=== PATIENT | male | born 1985 | race Caucasian/White ===

== ENCOUNTER 2019-04-24 06:17 | Day surgery (SDC) | payer BC ==
--- OUTSIDE RECORDS SUMMARY | 2019-04-24 06:19 | XMS REPORT | Summary of Care ---
:1985 Author Organization [facility] Address [address] [place] [address] Care Team Providers Name Role Phone Kev Velazquez MD Primary Care Provider Reason for Visit Reason Comments Follow-up anxiety follow up Encounter Details Date Type Department Care Team Description 09/20/2018 Office Visit [facility] Kev Velazquez Anxiety (Primary Dx); Medicine - Kristen Marshall MD Cold sore; [facility] [place] [address] Gastroesophageal reflux disease [place] [phone] Allergies No Known Allergiesdocumented as of this encounter (statuses as of 09/20/2018) Medications Medication Sig Dispensed Refills Start Date End Date Status clonazePAM 0.25 mg Take 0.25 mg 0 Active disintegrating tablet by mouth 2 (two) times daily as needed for Anxiety. escitalopram oxalate Take 1 90 tablet 4 09/20/2018 Active (LEXAPRO) 10 mg tablet by tabletIndications: mouth daily. Anxiety hydrOXYzine 25 mg Take 1 30 tablet 4 09/20/2018 Active tabletIndications: tablet by Anxiety mouth every 6 (six) hours as needed for Itching or Anxiety. pantoprazole 40 mg EC TAKE 1 90 tablet 4 09/20/2018 Active tabletIndications: TABLET BY Gastroesophageal MOUTH EVERY reflux disease without DAY IN THE esophagitis MORNING valACYclovir 500 mg Take 1 90 tablet 4 09/20/2018 Active tabletIndications: tablet by Cold sore mouth daily. SERTraline 100 mg Take 2 180 tablet 4 07/11/2018 Discontinued tabletIndications: tablets by 9 Anxiety mouth daily. pantoprazole 40 mg EC TAKE 1 90 tablet 4 07/11/2018 Discontinued tabletIndications: TABLET BY 9 Gastroesophageal MOUTH EVERY reflux disease without DAY IN THE esophagitis MORNING escitalopram oxalate Take 10 mg 0 Discontinued (LEXAPRO) 10 mg tablet by mouth 9 daily. hydrOXYzine 25 mg Take 25 mg 0 Discontinued tablet by mouth 9 every 6 (six) hours as needed for Itching or Anxiety. documented as of this encounter (statuses as of 09/20/2018) Active Problems Problem Noted Date Sleep apnea, obstructive 09/13/2015 Morbid obesity with body mass index of 70 and over in adult 09/13/2015 Gastroesophageal reflux disease without esophagitis 09/13/2015 documented as of this encounter (statuses as of 09/20/2018) Immunizations Name Administration Dates Next Due Influenza Virus Vaccine Quad IM Multi-dose 6+ MO 12/25/2016 documented as of this encounter Social History Tobacco Use Types Packs/Day Years Used Date Never Smoker Smokeless Tobacco: Never Used Alcohol Use Drinks/Week oz/Week Comments Yes 1 Cans of beer 0.6 rarely 0 Standard drinks or equivalent Sex Assigned at Date Recorded Not on file Job Start Date Occupation Industry Not on file Not on file Not on file Travel History Travel Start Travel End No recent travel history available. documented as of this encounter Last Filed Vital Signs Vital Sign Reading Time Taken Comments Blood Pressure 104/64 09/20/2018 10:42 AM CDT Pulse 56 09/20/2018 10:42 AM CDT Temperature 36.2 C (97.2 F) 09/20/2018 10:42 AM CDT Respiratory Rate 16 09/20/2018 10:42 AM CDT Oxygen Saturation - - Inhaled Oxygen Concentration - - Weight 155.6 kg (343 lb) 09/20/2018 10:42 AM CDT Height 170.2 cm (5' 7") 09/20/2018 10:42 AM CDT Body Mass Index 53.72 09/20/2018 10:42 AM CDT documented in this encounter Progress Notes Kev Velazquez MD - 09/20/2018 10:15 AM CDT CC: follow up anxiety and depression Jorge L is a 32 year old male Depression This is a chronic problem. Progression since onset: controlled on current medications. patient wants to get his medications here with 3 month supply for insurance. No Known Allergies Current Outpatient Medications Medication Sig Dispense Refill clonazePAM 0.25 mg disintegrating tablet Take 0.25 mg by mouth 2 (two) times daily as needed forAnxiety. escitalopram oxalate (LEXAPRO) 10 mg tablet Take 10 mg by mouth daily. hydrOXYzine 25 mg tablet Take 25 mg by mouth every 6 (six) hours as needed for Itching or Anxiety. pantoprazole 40 mg EC tablet TAKE 1 TABLET BY MOUTH EVERY DAY IN THE MORNING 90 tablet 4 No current facility-administered medications for this visit. Past Medical History: Diagnosis Date Anxiety Depression Esophageal reflux Morbid obesity with body mass index of 70 and over in adult Sleep apnea, obstructive Past Surgical History: Procedure Laterality Date ADENOIDECTOMY TONSILLECTOMY Social History Socioeconomic History Marital status: Spouse name: Not on file Number of children: Not on file Years of education: Not on file Highest education level: Not on file Occupational History Not on file Social Needs Financial resource strain: Not on file Food insecurity: Worry: Not on file Inability: Not on file Transportation needs: Medical: Not on file Non-medical: Not on file Tobacco Use Smoking status: Never Smoker Smokeless tobacco: Never Used Substance and Sexual Activity Alcohol use: Yes Alcohol/week: 0.6 oz Types: 1 Cans of beer per week Comment: rarely Drug use: No Sexual activity: Yes Partners: Female Lifestyle Physical activity: Days per week: Not on file Minutes per session: Not on file Stress: Not on file Relationships Social connections: Talks on phone: Not on file Gets together: Not on file Attends jainism service: Not on file Active member of club or organization: Not on file Attends meetings of clubs or organizations: Not on file Relationship status: Not on file Intimate partner violence: Fear of current or ex partner: Not on file Emotionally abused: Not on file Physically abused: Not on file Forced sexual activity: Not on file Other Topics Concern Not on file 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 Family History Problem Relation Age of Onset Diabetes Mother No Significant Medical Problems Father Review of Systems BP 104/64 (BP Location: Left arm, Patient Position: Sitting, BP CUFF SIZE: Adult Large) | Pulse 56| Temp 36.2 C (97.2 F) (Tympanic) | Resp 16 | Ht 5 ' 7" (1.702 m) | Wt 343 lb (155.6 kg) | BMI 53.72 kg/m Physical Exam Constitutional: He is oriented to person, place, and time. He appears well- developed and well-nourished. HENT: Head: Normocephalic and atraumatic. Eyes: Conjunctivae are normal. Neck: Normal range of motion. Neck supple. No JVD present. No tracheal deviation present. No thyromegaly present. Cardiovascular: Normal rate, regular rhythm, normal heart sounds and intact distal pulses. Exam reveals no gallop and no friction rub. No murmur heard. Pulmonary/Chest: Effort normal and breath sounds normal. No respiratory distress. He has no wheezes.He has no rales. He exhibits no tenderness. Abdominal: Soft. Bowel sounds are normal. He exhibits no distension and no mass. There is no tenderness. There is no rebound and no guarding. Musculoskeletal: Normal range of motion. He exhibits no edema or tenderness. Lymphadenopathy: He has no cervical adenopathy. Neurological: He is alert and oriented to person, place, and time. Skin: Skin is warm and dry. Diagnosis: 1. Anxiety escitalopram oxalate (LEXAPRO) 10 mg tablet hydrOXYzine 25 mg tablet 2. Cold sore valACYclovir 500 mg tablet 3. Gastroesophageal reflux disease without esophagitis pantoprazole 40 mg EC tablet Follow up: 6 months Patient Care Team: Kev Velazquez MD as PCP - General ([facility]) Plan of care, desired health behaviors, goals,& medication discussed with patient. Education resources & self management tools provided and reviewed with AVS. Patient/guardian/family verbalized understanding & agrees to plan of care. Barriers to care: None Ability to manage care: Good documented in this encounter Plan of Treatment Date Type Specialty Care Team Description 10/11/2018 Office Visit Family Medicine Kev Velazquez MD [address] [place] [address] [address] [place], [place] [phone] Health Maintenance Due Date Last Done Comments VARICELLA VACCINES (1 of 2 - 13+ 10/02/2000 2-dose series) DTaP,Tdap,and Td Vaccines (1 - 10/02/2006 Tdap) INFLUENZA VACCINE 10/27/2018 12/25/2016 PNEUMOCOCCAL 0-64 YEARS COMBINED Aged Out No longer eligible based on SERIES patient's age to complete this topic documented as of this encounter Results Not on filedocumented in this encounter Visit Diagnoses Diagnosis Anxiety - Primary Anxiety state, unspecified Cold sore Herpes simplex without mention of complication Gastroesophageal reflux disease without esophagitis Esophageal reflux documented in this encounter Insurance Payer Benefit Plan Subscriber ID Effective Dates Phone Address Type / Group [facility] [id number] 2015-Junior [phone] [address] PPO/POS [place] - OUT OF t 7 [id number] [place] [address] documented as of this encounter
--- OUTSIDE RECORDS SUMMARY | 2019-04-24 06:19 | XMS REPORT ---
:1985 [facility] [address] Stubbs [address] [place] [address] Care Team Providers Name Role Phone Unavailable Unavailable Unavailable Problems This patient has no known problems. Allergies, Adverse Reactions, Alerts This patient has no known allergies or adverse reactions. Medications This patient has no known medications.
--- OUTSIDE RECORDS SUMMARY | 2019-04-24 06:20 | XMS REPORT | Summary of Care ---
:1985 Author Organization [facility] Address [address] [place] [address] Care Team Providers Name Role Phone Kev Velazquez MD Primary Care Provider Reason for Visit Reason Comments Rx Concern/Question Encounter Details Date Type Department Care Team Description 10/07/2018 Telephone [facility] Family Kev Velazquez Rx Concern/Question Medicine - Kristen Marshall MD [address] [place] [address] [place] [address] [place], [place] [phone] Allergies No Known Allergiesdocumented as of this encounter (statuses as of 10/07/2018) Medications Medication Sig Dispensed Refills Start Date End Date Status clonazePAM 0.25 mg Take 0.25 mg by 0 Active disintegrating tablet mouth 2 (two) times daily as needed for Anxiety. escitalopram oxalate Take 1 tablet 90 tablet 4 09/20/2018 Active (LEXAPRO) 10 mg by mouth daily. tabletIndications: Anxiety hydrOXYzine 25 mg Take 1 tablet 30 tablet 4 09/20/2018 Active tabletIndications: by mouth every Anxiety 6 (six) hours as needed for Itching or Anxiety. pantoprazole 40 mg EC TAKE 1 TABLET 90 tablet 4 09/20/2018 Active tabletIndications: BY MOUTH EVERY Gastroesophageal reflux DAY IN THE disease without MORNING esophagitis valACYclovir 500 mg Take 1 tablet 90 tablet 4 09/20/2018 Active tabletIndications: Cold by mouth daily. sore documented as of this encounter (statuses as of 10/07/2018) Active Problems Problem Noted Date Sleep apnea, obstructive 09/13/2015 Morbid obesity with body mass index of 70 and over in adult 09/13/2015 Gastroesophageal reflux disease without esophagitis 09/13/2015 documented as of this encounter (statuses as of 10/07/2018) Immunizations Name Administration Dates Next Due Influenza [...] of this encounter Last Filed Vital Signs Not on filedocumented in this encounter Plan of Treatment Date Type Specialty Care Team Description 10/11/2018 Office Visit Family Medicine Kev Velazquez MD [address] [place] [address] [place] [address] [phone] 03/21/2019 Office Visit Family Medicine Kev Velazquez MD [address] [place] [address] [place] [address] [phone] Health Maintenance Due Date Last Done Comments VARICELLA VACCINES (1 of 2 - 13+ 10/02/2000 2-dose series) DTaP,Tdap,and Td Vaccines (1 - 10/02/2006 Tdap) INFLUENZA VACCINE 10/27/2018 12/25/2016 PNEUMOCOCCAL 0-64 YEARS COMBINED Aged Out No longer eligible based on SERIES patient's age to complete this topic documented as of this encounter Results Not on filedocumented in this encounter Insurance Payer Benefit Plan Subscriber ID Effective Dates Phone Address Type / Group [facility] [id number] 2015-Junior [phone] [address] PPO/POS [place] - OUT OF t 7 [id number] [place] [address] documented as of this encounter
--- OUTSIDE RECORDS SUMMARY | 2019-04-24 06:20 | XMS REPORT | Summary of Care ---
:1985 Author Organization [facility] Address [address] [place] [address] Care Team Providers Name Role Phone Kev Velazquez MD Primary Care Provider Encounter Details Date Type Department Care Team Description 10/30/2018 Letter (Out) [facility] Family Elisabeth Bruce PA [address] [place] [address] [place] [address] Allergies No Known Allergiesdocumented as of this encounter (statuses as of 10/30/2018) Medications Medication Sig Dispensed Refills Start Date [...] Active tabletIndications: Cold by mouth daily. sore brompheniramine-pseudoeph Take 5 mL by 120 mL 0 10/30/2018 Active edrine-DM (BROMFED DM) mouth 4 (four) 2-30-10 mg/5 mL times daily as syrupIndications: Acute needed for Cold URI symptoms. documented as of this encounter (statuses as of 10/30/2018) Active Problems Problem Noted Date Sleep apnea, obstructive 09/13/2015 Morbid obesity with body mass index of 70 and over in adult 09/13/2015 Gastroesophageal reflux disease without esophagitis 09/13/2015 documented as of this encounter (statuses as of 10/30/2018) Immunizations Name Administration Dates Next Due Influenza [...] Treatment Date Type Specialty Care Team Description 03/21/2019 Office Visit Family Medicine Kev Velazquez MD [address] [place] [address] [place] [phone] Health Maintenance Due Date Last Done Comments VARICELLA VACCINES (1 of 2 - 13+ 10/02/2000 2-dose series) DTaP,Tdap,and Td Vaccines (1 - 10/02/2006 Tdap) INFLUENZA VACCINE (#1) 2018 12/25/2016 PNEUMOCOCCAL 0-64 YEARS COMBINED Aged Out No longer eligible based on SERIES patient's age to complete this topic documented as of this encounter Results Not on filedocumented in this encounter Insurance Payer Benefit Plan Subscriber ID Effective Dates Phone Address Type / [facility] [id number] 2015-Junior [phone] [address] PPO/POS [place] - OUT OF t 7 [id number] [place] [address] documented as of this encounter
--- OUTSIDE RECORDS SUMMARY | 2019-04-24 06:20 | XMS REPORT | Summary of Care ---
:1985 Author Organization [facility] Address [address] [place] [address] Care Team Providers Name Role Phone Kev Velazquez MD Primary Care Provider Reason for Visit Reason Comments Sore Throat x1 day Cough Encounter Details Date Type Department Care Team Description 10/30/2018 Office Visit [facility] Family Elisabeth Bruce, Acute URI ( Primary Dx); Medicine - [place] HOM[place] JEANETH (obstructive sleep apnea) [facility] [address] [place] [address] [place] [phone] Allergies No Known Allergiesdocumented as of this [...] Sign Reading Time Taken Comments Blood Pressure 121/80 10/30/2018 11:15 AM CDT Pulse 64 10/30/2018 11:15 AM CDT Temperature 36.8 C (98.3 F) 10/30/2018 11:15 AM CDT Respiratory Rate - - Oxygen Saturation 98% 10/30/2018 11:15 AM CDT Inhaled Oxygen Concentration - - Weight 154.7 kg (341 lb) 10/30/2018 11:15 AM CDT Height - - Body Mass Index 53.41 09/20/2018 10:42 AM CDT documented in this encounter Patient Instructions Patient InstructionsElisabeth Bruce PA - 10/30/2018 11:00 AM CDT Brompheniramine; Dextromethorphan; Pseudoephedrine oral solution Brand Names: Brom/PSE/DM Cough, Bromaline DM, Bromatane DX, Brometane DX, Bromfed-DM, Bromophed DX, Brotapp-DM, BroveX PSB DM, Dimetane DX, LoHist PSB DM , Myphetane DX, Robitussin Cough and Allergy, Tuss Mine DM What is this medicine? BROMPHENIRAMINE; DEXTROMETHORPHAN; PSEUDOEPHEDRINE (brome fen IR a meen; dex troe meth OR fan; pita thornton e FED rin) is a histamine garcia, cough suppressant, and a decongestant. It can help relieve cough, runny nose, stuffy nose, sneezing , and itchy or watery eyes. This medicine is used to treat allergy and cold symptoms. This medicine will not treat an infection. How should I use this medicine? Take this medicine by mouth with a full glass of water. Follow the directions on the prescription label. Use a specially marked spoon or container to measure your medicine. Household spoons are not accurate. Take this medicine with food or milk if it upsets your stomach. Take your doses at regular times. Do not take more medicine than directed. Talk to your managed services sales consultant regarding the use of this medicine in children. While this drug may be prescribed for children as young as 2 years old for selected conditions, precautions do apply. Patients over 60 years old may have a stronger reaction to this medicine and need smaller doses. What side effects may I notice from receiving this medicine? Side effects that you should report to your doctor or health healthcare liaison as soon as possible: allergic reactions like skin rash, itching or hives, swelling of the face, lips, or tongue breathing problems changes in vision fast or irregular heartbeat feeling faint or lightheaded, falls hallucinations high blood pressure seizure trouble passing urine or change in the amount of urine vomiting Side effects that usually do not require medical attention (report to your doctor or health healthcare liaison if they continue or are bothersome): anxiety diarrhea headache loss of appetite nausea What may interact with this medicine? Do not take this medicine with any of the following medications: MAOIs like Carbex, Eldepryl, Marplan, Nardil, and Parnate This medicine may also interact with the following medications: any product that contains alcohol any stimulant drug barbiturates mecamylamine medicines for anxiety or sleep medicines for chest pain, heart disease, blood pressure or heart rhythm problems medicines for colds or allergies medicines for depression, anxiety, or psychotic disturbances reserpine some herbal or nutritional supplements some medicines for pain some medicines for Parkinson's disease What if I miss a dose? If you miss a dose, take it as soon as you can. If it is almost time for your next dose, take only that dose. Do not take double or extra doses. Where should I keep my medicine? Keep out of the reach of children. Store between 8 and 30 degrees C (46 and 86 degrees F). Protect from heat and light. Throw away any unused medicine after the expiration date. What should I tell my health care provider before I take this medicine? They need to know if you have any of these conditions: asthma blood vessel disease diabetes difficulty passing urine glaucoma high blood pressure other chronic disease stomach ulcer taken an MAOI like Carbex, Eldepryl, Marplan, Nardil, or Parnate in last 14 days thyroid disease an unusual or allergic reaction to brompheniramine, dextromethorphan, pseudoephedrine, other medicines, foods, dyes, or preservatives or trying to get breast-feeding What should I watch for while using this medicine? Tell your doctor or health healthcare liaison if your symptoms do not improve or if they get worse. If you have trouble falling asleep at night, take the last dose of the day at least a few hours beforebedtime. You may get drowsy or dizzy. Do not drive, use machinery, or do anything that needs mental alertnessuntil you know how this medicine affects you. To reduce the risk of dizzy or fainting spells, do notstand or sit up quickly, especially if you are an older patient. Alcohol may increase dizziness and drowsiness. Avoid alcoholic drinks. Your mouth may get dry. Chewing sugarless gum or sucking hard candy, and drinking plenty of water may help. Contact your doctor if the problem does not go away or is severe. This medicine may cause dry eyes and blurred vision. If you wear contact lenses you may feel some discomfort. Lubricating drops may help. See your eye doctor if the problem does not go away or is severe. NOTE:This sheet is a summary. It may not cover all possible information. If you have questions aboutthis medicine, talk to your doctor, pharmacist, or health care provider. Copyright 2018 Elsevier Adult Self-Care for Colds Colds are caused by viruses. They can't be cured with antibiotics. However, you can ease symptoms and support your body's efforts to heal itself. No matter which symptoms you have, be sure to: Drink plenty of fluids (water or clear soup) Stop smoking and drinking alcohol Get plenty of rest Understand a fever Take your temperature several times a day. If your fever is100.4F(38.0 C) for more than a day, call your healthcare provider. Relax, lie down. Go to bed if you want. Just get off your feet and rest. Also , drink plenty of fluids to avoid dehydration. Take acetaminophen or a nonsteroidal anti-inflammatory agent (NSAID), such as ibuprofen. Treat a troubled nose kindly Breathe steam or heated humidified air to open blocked nasal passages. shipping manager a hot shower or use a vaporizer. Be careful not to get burned by the steam. Saline nasal sprays and decongestant tablets help open a stuffy nose. Antihistamines can also help, but they can cause side effects such as drowsiness and drying of the eyes, nose, and mouth. Soothe a sore throat and cough Gargle [id number] with1/4teaspoon of salt dissolved in1/2 cup of warm water. Suck on throat lozenges and cough drops to moisten your throat. Cough medicines are available but it is unclear how well they actually work. Take acetaminophen or an NSAID, such as ibuprofen, to ease throat pain Ease digestive problems Put fluids back into your body. Take frequent sips of clear liquids such as water or broth. Avoiddrinks that have a lot of sugar in them, such as juices and sodas. These can make diarrhea worse. Older children and adults can drink sports drinks. As your appetite returns, you can resume your normal diet. Ask your healthcare provider if there are any foods you should avoid. When to seek medical care When you first notice symptoms, ask your healthcare provider if antiviral medicines are appropriate.Antibiotics should not be taken for colds or flu. Also, call your healthcare provider if you have any of the following symptoms or if you aren't feeling better after 7 days: Shortness of breath Pain or pressure in the chest or belly (abdomen) Worsening symptoms, especially after a period of improvement Fever of100.4F (38.0C) or higher, or fever that doesn't go down with medicine Sudden dizziness or confusion Severe or continued vomiting Signs of dehydration, including extreme thirst, dark urine, infrequent urination, dry mouth Spotted, red, or very sore throat Date Last Reviewed: 01/27/201619993599-5329 [employer]. [address] [place] [address], [place] [address]. All rights reserved. This information is not intended as a substitute for professional medical care. Always follow your healthcare professional's instructions. Bromfed- decongestant, antihistamine and cough suppressant. Do not add additional otc products with these components. mucinex- without decongestant; take with water--> plain guaifenesin Rest Wash hands frequently Increase water intake Cover mouth when coughing. Warm liquids Gargle with warm salt water/throat lozenges Tylenol as needed. Humidified steam Er: fever, chest pain, coughing up blood, shortness of breath, dizziness, passing out documented in this encounter Progress Notes Elisabeth Bruce PA - 10/30/2018 11:00 AM CDT Cc: Chief Complaint Patient presents with Sore Throat x1 day Cough Jorge Lcarlos Estrada is a 33 year old male. JEANETH: Dx 5-7 years ago with outside clinic 1-1.5 years ago he completed another sleep study with [facility] confirming JEANETH. He has been using a cpap every night and feels great while using. He needs a new mask. Dr. Velazquez has sent information to [facility] Patient but appears patient needs a face to face note so advised to follow-up. URI Presenting symptoms: congestion, cough, ear pain (Right) and sore throat Presenting symptoms: no facial pain, no fatigue, no fever and no rhinorrhea Duration: 1 day Timing: Intermittent Progression: Unchanged Chronicity: New Worsened by: Nothing Ineffective treatments: theraflu. Associated symptoms: sneezing Associated symptoms: no arthralgias, no headaches, no myalgias, no neck pain, no sinus pain, no swollen glands and no wheezing Risk factors: sick contacts (, coworker with cough) Risk factors: not elderly, no chronic cardiac disease, no chronic kidney disease , no chronic respiratory disease, no diabetes mellitus, no immunosuppression, no recent illness and no recent travel Allergies Jorge L has No Known Allergies. Medications Outpatient Medications Prior to Visit Medication Sig Dispense Refill clonazePAM 0.25 mg disintegrating tablet Take 0.25 mg by mouth 2 (two) times daily as needed forAnxiety. escitalopram oxalate (LEXAPRO) 10 mg tablet Take 1 tablet by mouth daily. 90 tablet 4 hydrOXYzine 25 mg tablet Take 1 tablet by mouth every 6 (six) hours as needed for Itching or Anxiety. 30 tablet 4 pantoprazole 40 mg EC tablet TAKE 1 TABLET BY MOUTH EVERY DAY IN THE MORNING 90 tablet 4 valACYclovir 500 mg tablet Take 1 tablet by mouth daily. 90 tablet 4 No facility-administered medications prior to visit. 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 Family History Problem Relation Age of Onset Diabetes Mother No Significant Medical Problems Father Review of Systems Constitutional: Negative for activity change, appetite change, chills, diaphoresis, fatigue and fever. HENT: Positive for congestion, ear pain (Right), sneezing and sore throat. Negative for drooling, ear discharge, facial swelling, hearing loss, mouth sores , nosebleeds, postnasal drip, rhinorrhea, sinus pressure, sinus pain, tinnitus, trouble swallowing and voice change. Eyes: Positive for discharge (watery) and itching. Negative for pain and redness. Respiratory: Positive for cough. Negative for apnea, choking, chest tightness, shortness of breath, wheezing and stridor. Cardiovascular: Negative for chest pain, palpitations and leg swelling. Gastrointestinal: Negative for abdominal pain, blood in stool, constipation, diarrhea and vomiting. Musculoskeletal: Negative for arthralgias, myalgias, neck pain and neck stiffness. Skin: Negative for rash. Neurological: Negative for dizziness, syncope, light-headedness and headaches. Vital Signs BP 121/80 | Pulse 64 | Temp 36.8 C (98.3 F) (Tympanic) | Wt 341 lb ( 154.7 kg) | SpO2 98% | BMI 53.41 kg/m Physical Exam Constitutional: He is oriented to person, place, and time. He appears well- developed and well-nourished. No distress. HENT: Head: Normocephalic and atraumatic. Right Ear: Tympanic membrane, external ear and ear canal normal. Left Ear: Tympanic membrane, external ear and ear canal normal. Nose: Mucosal edema present. No rhinorrhea. Right sinus exhibits no maxillary sinus tenderness and no frontal sinus tenderness. Left sinus exhibits no maxillary sinus tenderness and no frontal sinus tenderness. Mouth/Throat: Uvula is midline and mucous membranes are normal. Posterior oropharyngeal erythema present. No oropharyngeal exudate, posterior oropharyngeal edema or tonsillar abscesses. + clear pnd Eyes: Conjunctivae are normal. Neck: Neck supple. Cardiovascular: Normal rate, regular rhythm and normal heart sounds. Pulmonary/Chest: Effort normal and breath sounds normal. Abdominal: Soft. Bowel sounds are normal. He exhibits no distension. There is no tenderness. There is no guarding. Musculoskeletal: Normal range of motion. Lymphadenopathy: He has no cervical adenopathy. Neurological: He is alert and oriented to person, place, and time. Skin: Skin is warm and dry. He is not diaphoretic. Psychiatric: He has a normal mood and affect. His behavior is normal. Nursing note and vitals reviewed. Assessment/Plan Acute URI (primary encounter diagnosis) Plan: mocbcqzgiziukkg-vtvcocvjjvhjeii-CK (BROMFED DM) 2-30-10 mg/5 mL syrup, THROAT CULTURE, POCT RAPID STREP SCREEN FOR GROUP A Results for JORGE L ESTRADA ( ) as of 10/30/2018 12:05 Ref. Range 10/30/2018 00:00 POCT GP A STREP Latest Ref Range: Negative - Negative neg Negative POCT strep. Suspect viral etiology. Culture to confirm. Explained viral vs bacterial etiologies in detail. Explained that the most common cause of URI is viral. Viral cause most likely with s/s <7-10 days. Explained that antibiotics are not used for viral causes. Explained risks of antibiotic resistance and potential side effects with unnecessary use. Pt reports understanding. Treatment of choice is symptomatic, which includes: Bromfed- decongestant, antihistamine and cough suppressant. Do not add additional otc products with these components. mucinex- without decongestant; take with water--> plain guaifenesin Rest Wash hands frequently Increase water intake Cover mouth when coughing. Warm liquids Gargle with warm salt water/throat lozenges Tylenol as needed. Humidified steam Er: fever, chest pain, coughing up blood, shortness of breath, dizziness, passing out JEANETH (obstructive sleep apnea) Plan: Patient is using cpap every night. Feels great with use. Needs new mask. Order already placed, needing additional information. Will request sleep study results from [facility] to review and send to [facility] patient Pt ed/precautions given in detail regarding conditions/medicaitons. Er precautions given. Pt reportsunderstanding and agrees. rtc if s/s worsen or do not improve; Plan of care, desired health behaviors, goals, Ddx, & any prescribed or OTC medications discussed with patient. Education resources & self management tools provided and reviewed with AVS. Patient/guardian/family verbalized understanding & agrees to plan of care. Barriers to care: NONE Ability to manage care: Good This visit did not involve counseling and coordination that comprised more than 50% of the visit time.Electronically signed by Elisabeth Bruce PA at 2018 12:10 PM CDTdocumented in this encounter Plan of Treatment Date Type Specialty Care Team Description 03/21/2019 Office Visit Family Medicine Kev Velazquez MD [address] [place] [address] [place] [phone] Name Type Priority Associated Diagnoses Order Schedule THROAT CULTURE LAB Routine Acute URI Ordered: 10/30/2018 Health Maintenance Due Date Last Done Comments VARICELLA VACCINES (1 of 2 - 13+ 10/02/2000 2-dose series) DTaP,Tdap,and Td Vaccines (1 - 10/02/2006 Tdap) INFLUENZA VACCINE (#1) 2018 12/25/2016 PNEUMOCOCCAL 0-64 YEARS COMBINED Aged Out No longer eligible based on SERIES patient's age to complete this topic documented as of this encounter Procedures Procedure Name Priority Date/Time Associated Diagnosis Comments POCT RAPID STREP Routine 10/30/2018 Acute URI Results for this SCREEN FOR GROUP A procedure are in the results section. documented in this encounter Results POCT RAPID STREP SCREEN FOR GROUP A (10/30/2018) POCT GP A STREP neg Negative - Negative Specimen Swab - THROAT documented in this encounter Visit Diagnoses Diagnosis Acute URI - Primary Acute upper respiratory infections of unspecified site JEANETH (obstructive sleep apnea) Obstructive sleep apnea (adult) (pediatric) documented in this encounter Insurance Payer Benefit Plan Subscriber ID Effective Dates Phone Address Type / Group [facility] [id number] 2015-Junior [phone] [address] PPO/POS [place] - OUT OF t 7 [id number] [place] [address] [facility] [place] [facility] [place] (Home) [place] [address] documented as of this encounter"
--- OUTSIDE RECORDS SUMMARY | 2019-04-24 06:20 | XMS REPORT | Summary of Care ---
:1985 Author Organization [facility] Address [address] [place] [address] Care Team Providers Name Role Phone Kev Velazquez MD Primary Care Provider Reason for Visit Reason Comments Orders Encounter Details Date Type Department Care Team Description 10/08/[address] [facility] Family Medicine Kev Velazquez MD Orders - [address] [phone] [place] [address] Allergies No Known Allergiesdocumented as of this encounter (statuses as of 10/08/2018) Medications Medication Sig Dispensed Refills Start Date [...] as of this encounter (statuses as of 10/08/2018) Active Problems Problem Noted Date Sleep apnea, obstructive 09/13/2015 Morbid obesity with body mass index of 70 and over in adult 09/13/2015 Gastroesophageal reflux disease without esophagitis 09/13/2015 documented as of this encounter (statuses as of 10/08/2018) Immunizations Name Administration Dates Next Due Influenza [...] Office Visit Family Medicine Kev Velazquez MD [address] [place] [address] [place] [phone] Health Maintenance Due Date Last Done Comments [...] Effective Dates Phone Address Type / Group [facility] [id number] 2015-Junior [phone] [address] PPO/POS [place] - OUT OF 7 [id number] [place] [address] documented as of this encounter
--- OUTSIDE RECORDS SUMMARY | 2019-04-24 06:20 | XMS REPORT | Summary of Care ---
:1985 Author Organization [facility] Address [address] [place] [address] Care Team Providers Name Role Phone Kev Velazquez MD Primary Care Provider Reason for Visit Reason Comments Follow-up anxiety follow up Encounter Details Date Type Department Care Team Description 09/20/2018 Office Visit [facility] Kev Velazquez Anxiety (Primary Dx); Medicine - Kristen Marshall MD Cold sore; [facility] [place] [address] Gastroesophageal reflux disease [place] [phone] Allergies No Known Allergiesdocumented as of this [...] file Gets together: Not on file Attends alevism service: Not on file Active member of [...] Concern Not on file 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 Family History Problem Relation [...] Office Visit Family Medicine Kev Velazquez MD [address] [place] [address] [place], [place] [phone] 03/21/2019 Office Visit Family Medicine Kev Velazquez MD [address] [place] [address] [place], [place] [phone] Health Maintenance Due Date Last Done Comments [...] Effective Dates Phone Address Type / Group [facility] [id number] 2015-Junior [phone] [address] PPO/POS [place] - OUT OF t 7 [id number] [place] [address] documented as of this encounter
--- OUTSIDE RECORDS SUMMARY | 2019-04-24 06:20 | XMS REPORT | Summary of Care ---
:1985 Author Organization [facility] Address [address] [place] [address] Care Team Providers Name Role Phone Kev Velazquez MD Primary Care Provider Reason for Visit Reason Comments Forms Encounter Details Date Type Department Care Team Description 10/09/2018 Telephone [facility] Family Medicine Kev Velazquez MD [facility] [place] - [address] [phone] [place] [address] Allergies No Known Allergiesdocumented as of this encounter (statuses as of 10/09/2018) Medications Medication Sig Dispensed Refills Start Date [...] as of this encounter (statuses as of 10/09/2018) Active Problems Problem Noted Date Sleep apnea, obstructive 09/13/2015 Morbid obesity with body mass index of 70 and over in adult 09/13/2015 Gastroesophageal reflux disease without esophagitis 09/13/2015 documented as of this encounter (statuses as of 10/09/2018) Immunizations Name Administration Dates Next Due Influenza [...] Office Visit Family Medicine Kev Velazquez MD [address] [place] [address] [place] [phone] Health Maintenance Due Date Last Done Comments [...] Effective Dates Phone Address Type / Group [facility] [id number] 2015-Junior [phone] [address] PPO/POS [place] - OUT OF 7 [id number] [place] [address] documented as of this encounter
--- OUTSIDE RECORDS SUMMARY | 2019-04-24 06:20 | XMS REPORT | Summary of Care ---
:1985 Author Organization [facility] Address [address] [place] [address] Care Team Providers Name Role Phone Kev Velazquez MD Primary Care Provider Encounter Details Date Type Department Care Team Description 10/30/2018 Orders Only [facility] Doctor Unassigned, No [address] [facility] [place] [address] [address] [place] [address] Allergies No Known Allergiesdocumented as of this [...] Office Visit Family Medicine Kev Velazquez MD [address] [place] [address] [place] [phone] Health Maintenance Due Date Last Done Comments VARICELLA VACCINES (1 of 2 - 13+ 10/02/2000 2-dose series) DTaP,Tdap,and Td Vaccines (1 - 10/02/2006 Tdap) INFLUENZA VACCINE (#1) 2018 12/25/2016 PNEUMOCOCCAL 0-64 YEARS COMBINED Aged Out No longer eligible based on SERIES patient's age to complete this topic documented as of this encounter Procedures Procedure Name Priority Date/Time Associated Diagnosis Comments [facility] PATIENT FINANCIAL Routine 10/30/2018 11:08 AM CDT POLICY documented in this encounter Results Not on filedocumented in this encounter Insurance Payer Benefit Plan Subscriber ID Effective Dates Phone Address Type / Group [facility] [id number] 2015-Junior [phone] [address] PPO/POS [place] - OUT OF 7 [id number] [place] [address] documented as of this encounter
--- OUTSIDE RECORDS SUMMARY | 2019-04-24 06:20 | XMS REPORT | Summary of Care ---
:1985 Author Organization [facility] - Health Address [address] [place] [address] Care Team Providers Name Role Phone Kev Velazquez MD Primary Care Provider Encounter Details Date Type Department Care Team Description 10/08/2018 Orders Only [facility] Doctor Unassigned, No [address] [facility] [place] [address] [address] [place] [address] Allergies No Known Allergiesdocumented as of this encounter (statuses as of 10/23/2018) Medications Medication Sig Dispensed Refills Start Date [...] as of this encounter (statuses as of 10/23/2018) Active Problems Problem Noted Date Sleep apnea, obstructive 09/13/2015 Morbid obesity with body mass index of 70 and over in adult 09/13/2015 Gastroesophageal reflux disease without esophagitis 09/13/2015 documented as of this encounter (statuses as of 10/23/2018) Immunizations Name Administration Dates Next Due Influenza [...] Office Visit Family Medicine Kev Velazquez MD [address] [place] [address] [place] [address] Health Maintenance Due Date Last Done Comments VARICELLA VACCINES (1 of 2 - 13+ 10/02/2000 2-dose series) DTaP,Tdap,and Td Vaccines (1 - 10/02/2006 Tdap) INFLUENZA VACCINE (#1) 2018 12/25/2016 PNEUMOCOCCAL 0-64 YEARS COMBINED Aged Out No longer eligible based on SERIES patient's age to complete this topic documented as of this encounter Procedures Procedure Name Priority Date/Time Associated Diagnosis Comments DME/SUPPLY JUSTIFICATION Routine 10/08/2018 12:01 AM CDT documented in this encounter Results Not on filedocumented in this encounter Insurance Payer Benefit Plan Subscriber ID Effective Dates Phone Address Type / Group [facility] [id number] 2015-Junior [phone] [address] PPO/POS [place] - OUT OF 7 [id number] [place] [address] documented as of this encounter
--- OUTSIDE RECORDS SUMMARY | 2019-04-24 06:21 | XMS REPORT | Summary of Care ---
:1985 Author Name ALBERTO MOULTON N.P. Address Unavailable Unavailable , Care Team Providers Name Role Phone ALBERTO MOULTON N.P. 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 Quantity: 1 Refills: 5 SAIGE N.Ginny.ALBERTO Start : 20-Aug-2017 Active Vitamin D (Ergocalciferol) 1.25 MG (50468 UT) Oral Capsule Take 1 capsule two times per week Quantity: 8 Refills: 3 SAIGE N.P.ALBERTO Start : 20-Aug-2017 Active Nascobal 500 MCG/0.1ML Nasal Solution USE 1 SPRAY IN ONE NOSTRIL ONCE WEEKLY. 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) Status: Resolved History of malnutrition (V12.1, Z86.39) Status: Resolved History of malnutrition (V12.1, Z86.39) Status: Resolved History of malnutrition (V12.1, Z86.39) Status: Resolved History of malnutrition (V12.1, Z86.39) Status: Resolved Procedures Procedure Dates Details [QL] COMPREHENSIVE METABOLIC PANEL W/O eGFR Date: 09-Dec-2018 [QLH] VITAMIN A (RETINOL) Date: 09-Dec-2018 [QLH] VITAMIN E (TOCOPHEROL) Date: 09-Dec-2018 Immunization Name Dates Details Immunizations not documented Social History Name Dates Details Unknown if ever smoked Vital Signs Date Test Result Details No Known Vitals to report Results Date Description Value Details [id number] [LH] CBC (without differential) WBC 7.3 {K/CMM} Range: 3.7-10.4 RBC 4.88 {M/CMM} Range: 4.70-6.10 Hgb 14.4 g/dl Range: 14.0-18.0 Hct 42.4 % Range: 42.0-54.0 MCV 86.8 fL Range: 80.0-94.0 MCH 29.6 pg Range: 27.0-31.0 MCHC 34.1 g/dl Range: 32.0-36.0 RDW 14.9 % (Above high threshold) Range: 11.5-14.5 Platelet 239 {K/CMM} Range: 133-450 Mean Platelet Volume 9.0 fL Range: 7.4-10.4 [id number] [QLH] PTH, INTACT (WITHOUT CALCIUM) Parathyroid Hormone Intact 43.4 pg/ml Range: 18.4-80.1 :15 [QLH] HEMOGLOBIN A1c Hemoglobin A1c 5.3 % Range: <=5.6 [id number] [QLH] VITAMIN D, 25-HYDROXY, LC/MS/MS Vitamin D, 25-OH, 22.8 ng/ml (Below low Range: 30.0-100.0 Total threshold) Comments: Reference range is based on recommendations in the EndocrineSociety Clinical Practice Guideline (J Clin Endocrinol Twjod9005;96 :9278-9439) [id number]:15 [QLH] CMP W/EGFR Sodium Level 138 {mEq/l} Range: 135-145 Potassium Level 4.3 {mEq/l} Range: 3.5-5.1 Chloride Level 103 {mEq/l} Range: 95-109 Carbon Dioxide 24 {mEq/l} Range: 24-32 AGAP 15.3 {mEq/l} Range: 10.0-20.0 Glucose Lvl 87 mg/dl Range: 70-99 Comments: Adult reference range values reflect the clinical guidelinesof the [place] [employer] Association. Creatinine Lvl 0.90 mg/dl Range: 0.50-1.40 Blood Urea Nitrogen 14 mg/dl Range: 7-22 BUN/Creatinine Ratio 16 Range: 6-25 Total Protein 6.8 g/dl Range: 6.4-8.4 Albumin Lvl 3.7 g/dl Range: 3.5-5.0 Globulin 3.1 g/dl Range: 2.7-4.2 A/G Ratio 1.2 Range: 0.7-1.6 Calcium Level Total 8.9 mg/dl Range: 8.5-10.5 ALT 27 u/l Range: 0-65 AST 15 u/l Range: 0-37 Bili Total 0.2 mg/dl Range: 0.2-1.3 Alk Phos 105 u/l Range: 39-136 Comments: The pediatric reference ranges for this test represent a CLSI- basedtransference of the CALIPER database of pediatric reference intervals to the[facility] – henryettaPodotreeta analyzer (Clinical Biochemistry 46 (2013): 11 97-1219). The [facility] WHOOP has not internally validated these referenceranges and therefore they should be used only in the context of a thoroughclinical assessment. eGFR 113 {ML/MIN/1.7} Comments: The eGFR is calculated using the CKD-EPI formula. In most young, healthyindividuals the eGFR will be >90 mL/min/1.73m2. The eGFR declines with age. AneGFR of 60-89 may be normal in some populations, particularly the elderly, forwhom the CKD-EPI formula has not been extensively validated. Use of the eGFR isnot recommended in the following populations:Individuals with unstable creatinine concentratio ns, including patients and those with serious co-morbid conditions.Patients with extremes in muscle mass or diet.The data above are obtained from the National Kidney Disease Education Program(NK DEP) which additionally recommends that when the eGFR is used in patientswith extremes of body mass index for purposes of drug dosing, the eGFR shouldbe multiplied by the estimated BMI. :15 [QL] FOLATE, SERUM Folate Level 1.3 ng/ml (Below low threshold) Range: >=3.0 :15 [QL] IRON AND TOTAL IRON BINDING CAPACITY Iron 79 ug/dL Range: 45-160 % Satur Fe 31 % Range: 12-57 TIBC 259 ug/dL Range: 228-428 UIBC 180 ug/dL Range: 110-370 :15 [QL] LIPID PANEL Chol 199 mg/dl Range: <=199 Trig 108 mg/dl Range: <=149 HDL Cholesterol 54 mg/dl (Below low threshold) Range: >=61 CHD Risk 3.69 (Below low threshold) Range: 4.00-7.30 LDL 123 mg/dl (Above high threshold) Range: <=99 VLDL 22 :15 [[facility]] TSH, 3RD GENERATION TSH 0.643 {uIU/ml} Range: 0.360-3.740 : [[facility]] VITAMIN B12 Vitamin B12 Level 299 pg/ml Range: 254-1320 :15 [H] Vit A Vitamin A Level 48.9 ug/dL Range: 18.9-57.3 Comments: Reference intervals for vitamin A determined from LabCorpinternal studies. Individuals with vitamin A less than 20ug/dL are considered vitamin A deficient and those withserum concentrations less than 10 ug/dL are consideredseverely deficient.This test was developed and its performance characteristicsdetermined by [employer]. It has not been cleared orapproved by the Food and Drug Administration.Performed At: [address] [id number] Sanjai MD Ph:[phone] :15 [H] Vitamin E Lvl Alpha-Tocopherol 8.4 mg/L Range: 5.9-19.4 Comments: This test was developed and its performance characteristicsdetermined by [employer]. It has not been cleared orapproved by the Food and Drug Administration. Gamma-Tocopherol 1.2 mg/L Range: 0.7-4.9 Comments: This test was developed and its performance characteristicsdetermined by [employer]. It has not been cleared orapproved by the Food and Drug Administration.Reference intervals for alpha and gamma-tocophero ldetermined from National Health and Nutrition ExaminationSurvey, 2005- 2006. Individuals with alpha-tocopherol levelsless than 5.0 mg/L are considered vitamin E deficient.Performed At: [facility] [address] [place], [place] [id number] Florian MD Ph: [phone] [id number]:15 [[facility]] VITAMIN B1, WHOLE BLOOD Vitamin B1 Level 85.3 nmol/L Range: 66.5-200.0 Comments: This test was developed and its performance characteristicsdetermined by [employer]. It has not been cleared orapproved by the Food and Drug Administration.Performed At: [facility] [place], [place] [id number] Florian MD Ph:[phone] Plan of Care Name Dates Details Planned Observations Planned Goals not documented Instructions Name Dates Details Instructions not documented Encounters Appointment; THOMAS BORGES M.D. On: 20-Jul-2017 9:30 Encounter Diagnosis: Problem not documented Appointment; OUMAR STEVENS RD On: 20-Aug-2017 12:45 Encounter Diagnosis: Problem not documented Appointment; OUMAR STEVENS RD On: 03-Sep-2017 10:30 Encounter Diagnosis: Problem not documented Appointment; OUMAR STEVENS RD On: 21-Sep-2017 14:30 Encounter Diagnosis: Problem not documented Appointment; OUMAR STEVENS RD On: 22-Oct-2017 16:00 Encounter Diagnosis: Problem not documented Appointment; OUMAR STEVENS RD On: 22-Nov-2017 15:00 Encounter Diagnosis: Problem not documented Appointment; KENNETH MIN D.O. On: 23-Nov-2017 11:00 Encounter Diagnosis: Problem not documented Appointment; THOMAS BORGES M.D. On: 21-Dec-2017 9:00 Encounter Diagnosis: Problem not documented Appointment; THOMAS BORGES M.D. On: 01-Feb-2018 9:00 Encounter Diagnosis: Problem not documented Appointment; THOMAS BORGES M.D. On: 08-Feb-2018 8:00 Encounter Diagnosis: Problem not documented Appointment; KENNETH MIN D.O. On: 15-Feb-2018 11:30 Encounter Diagnosis: Problem not documented Appointment; THOMAS BORGES M.D. On: 22-Mar-2018 9:00 Encounter Diagnosis: Problem not documented Appointment; THOMAS BORGES M.D. On: 17-May-2018 9:00 Encounter Diagnosis: Problem not documented Appointment; THOMAS BORGES M.D. On: 09-Aug-2018 9:00 Encounter Diagnosis: Problem not documented Appointment; ALBERTO MOULTON NP On: 09-Dec-2018 13:00 Encounter Diagnosis: Problem not documented
--- OUTSIDE RECORDS SUMMARY | 2019-04-24 06:21 | XMS REPORT | Summary of Care ---
:1985 Author Organization [facility] - [facility] Address [address] [place] [address] Care Team Providers Name Role Phone Kev Velazquez MD Primary Care Provider Reason for Visit Reason Comments Sore Throat x1 day Cough Encounter Details Date Type Department Care Team Description 10/30/2018 Office Visit [facility] Family Elisabeth Bruce, Acute URI ( Primary Dx); Medicine - [place] JEANETH (obstructive sleep apnea) [facility] [address] [place] [address] [place] [phone] Allergies No Known Allergiesdocumented as of this [...] more medicine than directed. Talk to your hardwood sawyer regarding the use of this medicine in [...] should report to your doctor or health rn care transition as soon as possible: allergic reactions like [...] attention (report to your doctor or health rn care transition if they continue or are bothersome): anxiety [...] this medicine? Tell your doctor or health rn care transition if your symptoms do not improve or [...] humidified air to open blocked nasal passages. 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 Be careful not to get burned by the steam. Saline nasal sprays and decongestant tablets help open a stuffy nose. Antihistamines can also help, but they can cause side effects such as drowsiness and drying of the eyes, nose, and mouth. Soothe a sore throat and cough Gargle [id number] with1/4teaspoon of salt dissolved in1/2 cup of [...] or very sore throat Date Last Reviewed: 01/27/201619997775-4465 [employer]. [address] [place] [address], [place] [address]. All rights reserved. This information is not [...] ago he completed another sleep study with [facility] confirming JEANETH. He has been using a cpap every night and feels great while using. He needs a new mask. Dr. 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 Family History Problem Relation [...] Assessment/Plan Acute URI (primary encounter diagnosis) Plan: ssipaehxzfcybxg-mbheeddoyvzsibp-EF (BROMFED DM) 2-30-10 mg/5 mL syrup, THROAT [...] information. Will request sleep study results from [facility] to review and send to [facility] patient Pt ed/precautions given in detail [...] Office Visit Family Medicine Kev Velazquez MD [address] [place] [address] [place] [phone] Name Type Priority Associated Diagnoses Order Schedule [...] Effective Dates Phone Address Type / Group [facility] [id number] 2015-Junior [phone] [address] PPO/POS [place] - OUT OF t 7 [id number] [place] [address] [facility] (Home) [place] [address] documented as of this encounter"
--- OUTSIDE RECORDS SUMMARY | 2019-04-24 06:21 | XMS REPORT | Summary of Care ---
:1985 Author Organization [facility] Address [address] [place] [address] Care Team Providers Name Role Phone Kev Velazquez MD Primary Care Provider Reason for Visit Reason Comments Rx Concern/Question Encounter Details Date Type Department Care Team Description 11/05/2018 Telephone [facility] Family Kev Velazquez Rx Concern/Question Medicine - Kristen Marshall MD [address] [place] [address] [place] [address] [place], [place] [phone] [address] Allergies No Known Allergiesdocumented as of this encounter (statuses as of 11/06/2018) Medications Medication Sig Dispensed Refills Start Date [...] as of this encounter (statuses as of 11/06/2018) Active Problems Problem Noted Date Sleep apnea, obstructive 09/13/2015 Morbid obesity with body mass index of 70 and over in adult 09/13/2015 Gastroesophageal reflux disease without esophagitis 09/13/2015 documented as of this encounter (statuses as of 11/06/2018) Immunizations Name Administration Dates Next Due Influenza [...] Visit Family Medicine Kev Velazquez MD [address] [place] [address] [place] [address] Health Maintenance Due Date Last Done [...] Effective Dates Phone Address Type / Group [facility] [id number] 2015-Junior [phone] [address] PPO/POS [place] - OUT OF t 7 [id number] [place] [address] documented as of this encounter
--- OUTSIDE RECORDS SUMMARY | 2019-04-24 06:21 | XMS REPORT | Summary of Care ---
:1985 Author Organization [facility] - [facility] Address [address] [place] [address] Care Team Providers Name Role Phone Kev Velazquez MD Primary Care Provider Reason for Visit Reason Comments Rx Concern/Question Encounter Details Date Type Department Care Team Description 11/06/2018 Telephone [facility] Family Kev Velazquez Rx Concern/Question Medicine - Kristen Marshall MD [address] [place] [address] [place] [address] [place], [place] [phone] Allergies No Known Allergiesdocumented as of this encounter (statuses as of 11/08/2018) Medications Medication Sig Dispensed Refills Start Date End Date Status clonazePAM 0.25 mg Take 0.25 mg 0 Active disintegrating tablet by mouth 2 (two) times daily as needed for Anxiety. escitalopram oxalate Take 1 tablet 90 tablet 4 09/20/2018 Active (LEXAPRO) 10 mg by mouth tabletIndications: daily. Anxiety hydrOXYzine 25 mg Take 1 tablet [...] 4 09/20/2018 Active tabletIndications: Cold by mouth sore daily. brompheniramine-pseudoe Take 5 mL by 120 mL 0 10/30/2018 Active phedrine-DM (BROMFED mouth 4 (four) DM) 2-30-10 mg/5 mL times daily as syrupIndications: Acute needed for URI Cold symptoms. cephALEXin (KEFLEX) 500 Take 1 capsule 14 capsule 0 11/06/2018 11/13/2018 Active mg capsuleIndications: by mouth 2 Acute URI (two) times daily for 7 days. documented as of this encounter (statuses as of 11/08/2018) Active Problems Problem Noted Date Sleep apnea, obstructive 09/13/2015 Morbid obesity with body mass index of 70 and over in adult 09/13/2015 Gastroesophageal reflux disease without esophagitis 09/13/2015 documented as of this encounter (statuses as of 11/08/2018) Immunizations Name Administration Dates Next Due Influenza [...] Office Visit Family Medicine Kev Velazquez MD [address] [place] [address] [place] [phone] Health Maintenance Due Date [...] Effective Dates Phone Address Type / Group [facility] [id number] 2015-Junior [phone] [address] PPO/POS [place] - OUT OF 7 [id number] [place] [address] documented as of this encounter
--- OUTSIDE RECORDS SUMMARY | 2019-04-24 06:21 | XMS REPORT | Summary of Care ---
:1985 Author Organization [facility] Address [address] [place] [address] Care Team Providers Name Role Phone Kev Velazquez MD Primary Care Provider Reason for Visit Reason Comments Forms Encounter Details Date Type Department Care Team Description 11/05/2018 Telephone [facility] Family Medicine Kev Velazquez MD [facility] - [address] [phone] [place] [address] Allergies No Known Allergiesdocumented as [...] Office Visit Family Medicine Kev Velazquez MD [address] [place] [address] [address], [place] [phone] Health Maintenance Due Date Last Done Comments VARICELLA VACCINES (1 of 2 - 13+ 10/02/2000 2-dose series) DTaP,Tdap,and Td Vaccines (1 - 10/02/2006 Tdap) INFLUENZA VACCINE (#1) 2018 12/25/2016 PNEUMOCOCCAL 0-64 YEARS COMBINED Aged Out No longer eligible based on SERIES patient's age to complete this topic documented as of this encounter Results Not on filedocumented in this encounter Visit Diagnoses Diagnosis Acute URI - Primary Acute upper respiratory infections of unspecified site documented in this encounter Insurance Payer Benefit Plan Subscriber ID Effective Dates Phone Address Type / Group [facility] [id number] 2015-Junior [phone] [address] PPO/POS [place] - OUT OF t 7 [id number] [place] [address] documented as of this encounter
[2019-04-24] MEDS ORDERED: Ringers Lactate 1,000 ML IV ONE (06:25)
[2019-04-24] MEDS: Gatifloxacin Ophth 0.5% (2.5 ML BTL) OPTH ONE ×3 (06:55→07:25)
[2019-04-24] MEDS: KETOROLAC OPTHALMIC 5 ML BOT ONE ×3 (07:04→07:24)
[2019-04-24] MEDS: PILOCARPINE 1% OPTH DROPS 15 ML BTL OPTH ONE ×2 (07:04→07:24)
[2019-04-24] MEDS ORDERED: propofoL 200 MG/20 ML VIAL IV ONE (07:13)
[2019-04-24] MEDS ORDERED: LIDOCAINE 2% MPF 5 ML VIAL ONE ×2 (07:14→07:48)
[2019-04-24] MEDS ORDERED: PILOCARPINE 1% OPTH DROPS 15 ML BTL OPTH ONE (07:14)
[2019-04-24] MEDS ORDERED: TRIAMCINOLONE ACETON 40 MG/ML VIAL ONE (07:14)
[2019-04-24] MEDS ORDERED: TOBRAMYCIN SULF 80 MG/2 ML VIAL ONE (07:14)
[2019-04-24] MEDS ORDERED: BSS OPTHALMIC SOL 15 ML BOT OPTH ONE (07:14)
[2019-04-24] MEDS ORDERED: MIDAZOLAM HCL 2 MG/2 ML INJ ONE (07:14)
[2019-04-24] MEDS ORDERED: TOBRADEX 0.3-0.1% OPTH OINTMENT ONE (07:14)
[2019-04-24] MEDS ORDERED: FENTANYL CITR 100 MCG/2 ML ONE (07:14)
[2019-04-24] MEDS ORDERED: HYALURONATE SODIUM 14 MG/ML SYR OPTH ONE ×2 (07:15→08:57)
[2019-04-24] MEDS ORDERED: ONDANSETRON 4 MG/2 ML VIAL ONE ×2 (07:25→07:32)
[2019-04-24] MEDS: NA CIT/CITRIC AC 30 ML ORAL UDC ONE ×2 (07:25→08:05)
[2019-04-24] MEDS ORDERED: SCOPOLAMINE HYDROBROMIDE PATCH TD ONE ×2 (07:27→08:12)
[2019-04-24] MEDS ORDERED: GLYCOPYRROLATE 0.2 MG/ML SYR ONE ×2 (07:32→07:33)
[2019-04-24] MEDS ORDERED: ROCURONIUM 50 MG/5 ML VIAL IV ONE (07:33)
[2019-04-24] MEDS ORDERED: NEOSTIGMINE 1 MG/ML -5 ML ONE (07:34)
[2019-04-24] MEDS ORDERED: LIDOCAINE JELLY 2%- 5 ML TUBE ONE (07:35)
[2019-04-24] MEDS ORDERED: SUCCINYLCHOLINE 20 MG/ML (10 ML) IV ONE (07:36)
[2019-04-24] MEDS ORDERED: EPINEPHRINE/PF 1 MG/ML AMP ONE (07:46)
[2019-04-24] MEDS ORDERED: BALANCED SALT IRRIG PLAIN 500 ML BTL IRR ONE (07:46)
[2019-04-24] MEDS: BUPIVACAINE 0.5% PF 10 ML VIAL ONE ×2 (08:11→08:15)
[2019-04-24] MEDS ORDERED: EPHEDRINE SULF 50 MG/ML VIAL ONE (08:34)
[2019-04-24] MEDS: HYDROMORPHONE HCL 1 MG/ML INJ ONE ×4 (10:37→10:59)
[2019-04-24] MEDS ORDERED: PROMETHAZINE INJ 25 MG/ML AMP ONE (10:52)
[2019-04-24 11:26] VITALS: TEMP 97.4
[2019-04-24 12:23] VITALS: BP 105/53; O2SAT 97
--- NOTE | 2019-04-24 21:22 | OP ---
Date of Procedure: 04/24/2019 Surgeon: Donovan Moses MD Preoperative Diagnosis: Keratoconus, right eye. Postoperative Diagnosis: Keratoconus, right eye. Procedure Performed: Penetrating keratoplasty, right eye. Description Of Procedure: After being properly identified in preoperative holding area, patient was taken back to the operating room where a time-out was performed. Patient was then prepped and draped in the normal sterile fashion. Examination of ocular tissue #[id number] obtained from the [facility], was carried out and found to be an adequate match for the patient and patient's need was performed. Attention was drawn to the patient, who having been placed under general anesthesia and p repped in the normal sterile fashion. He was given a retrobulbar block consisting of 50% lidocaine a nd 50% bupivacaine. Examination of the eye underneath the operating microscope revealed central corn eal scarring and a caliper was set to size of the cornea and the size for the graft. The largest set of punches that were available was 8.0 donor and this was undersized by 0.5 mm to 7.5 mm for the hos t. Using a caliper, the center of the cornea was found and then the cornea covered with Healon and o ur attention turned to the back table. The corneal tissue was removed from its container and placed on the corneal punch, again 8.0 mm centered and then punched through completely. The donor rim and f luid were sent for microbiology. The corneal donor was then re-bathed in Op-Susanne and placed aside and our attention again turned to the patient. The Healon was washed off the eye and a paracentesis mad e nasally and the anterior chamber filled with Healon GV. Using a trephined, the cornea was trephina radha until the Healon was viewed. Then, the trephine removed and the remainder of the cornea removed using right and left cutting corneal scissors. The corneal donor was then transferred on to the [facility] ent via a means of a patent spatula and the new donor cornea attached with a series of 10-0 nylon usi ng interrupted sutures. A total of 16 sutures were placed with the knots buried. Examination of the eye at this point showed a small tape superiorly and 2 additional sutures were added. The anterior chamber was then irrigated out with intraocular BSS. Subconjunctival Kenalog and tobramycin were the n injected and the patient then undraped and taken to the postoperative holding area in stable condit ion, having tolerated the procedure well. All sutures were trimmed and appropriately rotated so that no knots were exposed and examination of the cornea at the end of the case revealed a well-centered transplant that was clear. The patient was pressure patched over TobraDex ointment and taken to the postoperative holding area in stable condition, having tolerated procedure well. He is to follow up with myself, Dr. Doonvan Moses, the [facility] [place] tomorrow morning. ALEXANDERG/MODL Voice ID: [id number] Report ID: [id number]
== END 2019-04-24 12:20 | disposition home or self-care (01) ==
LOC: OR 06:17
PROVIDERS: ATTEND Ophthalmology
PROC: 08R83KZ Replacement of Right Cornea with Nonautologous Tissue Substitute, Percutaneous Approach (ICD-10-PCS; principal; 2019-04-24 07:30)
DX: H18.601 Keratoconus, unspecified, right eye (principal); G47.33 Obstructive sleep apnea (adult) (pediatric); K21.9 Gastro-esophageal reflux disease without esophagitis; E66.9 Obesity, unspecified; Z68.43 Body mass index [BMI] 50.0-59.9, adult
CPT/HCPCS: 65730; 87070; 87205; 88300; 87176; J2704; J2550; J3301; J0330; J2250; J3010; J1170 ×2; J2710; J7120; J3260; J2405 ×2; J0171